=== PATIENT | female | born 1980 | race Two or more races ===

== ENCOUNTER 2016-10-21 06:10 | Inpatient (IN) | payer BC, OTHER ==
[2016-10-21] MEDS: ELECTROLYTE-148 SOLN 500 ML IV SCH (06:30)
[2016-10-21 06:43] VITALS: BMI 32.5
[2016-10-21] MEDS ORDERED: CITRIC ACID/SODIUM CITRATE 30 ML UNIT-DOSE CUP PO ONE (06:45)
[2016-10-21] MEDS ORDERED: ELECTROLYTE-148 SOLN 1,000 ML IV SCH ×2 (07:15→08:15)
[2016-10-21] MEDS ORDERED: oxyCODONE HCL 5 MG TABLET PO PRN (08:14)
[2016-10-21] MEDS ORDERED: METHYLERGONOVINE MALEATE 0.2 MG/1 ML AMP IM PRN (08:14)
[2016-10-21 08:59] LABS: ARTERIAL BLOOD GAS BASE EXCESS -1.2 meq/l (-2-2); ARTERIAL BLOOD GAS HCO3 23.2 meq/L (22-26); ARTERIAL BLOOD GAS pH 7.38 (7.35-7.45)
[2016-10-21 09:00] LABS: LPM/O2% 21%; PT. ON O2? NO; TYPE OF O2 ROOM AIR
[2016-10-21] MEDS ORDERED: TUBERCULIN PPD 5 TU/0.1ML SYRINGE (IN PATIENT USE ONLY) ID ONE (09:00)
--- NOTE | 2016-10-21 09:01 | HP ---
[id number] Chief Complaint: Previous Section. previous demise History of Present Illness: 36 yo EDC 11/04/16 EGA 38 weeks with previous demise and previous cS for repeat CS +AFM no ROM no bleeding History Source: Patient - Past Medical History ...: 2 ...Para: 1 ...Term: 1 ...: 0 ...Spon : 0 ...Induced : 0 ...Multiple Gestation: 0 ...LMP: 01/20/16 ... Weeks Gestation by Dates: 39.2 ...EDC by Dates: 10/26/16 ...EDC by Sono: 11/04/16 - Past Surgical History Past Surgical History: Yes: None Hx Myomectomy: No Hx Transabdominal Cerclage: No - Smoking History Smoking history: Never smoked Have you smoked in the past 12 months: No - Alcohol/Substance Use Hx Alcohol Use: No History of Substance Use: reports: None - Social History ADL: Independent History of Recent Travel: No Home Medications - Allergies Allergies/Adverse Reactions: Allergies Allergy/AdvReac Type Severity Reaction Status Date / Time No Known Allergies Allergy Verified 10/01/15 17:35 - Home Medications Home Medications: Ambulatory Orders Vit #108/Iron/FA [ One Tablet] 1 each PO DAILY 10/01/15 Review of Systems - Review of Systems Constitutional: reports: No Symptoms Eyes: reports: No Symptoms HENT: reports: No Symptoms Neck: reports: No Symptoms Cardiovascular: reports: No Symptoms Respiratory: reports: No Symptoms Gastrointestinal: reports: No Symptoms Genitourinary: reports: No Symptoms Breasts: reports: No Symptoms Reported Musculoskeletal: reports: No Symptoms Integumentary: reports: No Symptoms Neurological: reports: No Symptoms Endocrine: reports: No Symptoms Hematology/Lymphatic: reports: No Symptoms Psychiatric: reports: No Symptoms Physical Exam - Maternity Vital Signs: Vital Signs Temperature 97.9 F 10/21/16 06:36 Pulse Rate 109 H 10/21/16 06:36 Respiratory Rate 20 10/21/16 06:36 Blood Pressure 123/69 10/21/16 06:36 O2 Sat by Pulse Oximetry (%) Constitutional: Yes: Well Nourished, No Distress Neck: Yes: WNL, Supple Cardiovascular: Yes: WNL Lungs: Clear to auscultation - Abdominal Exam/OB Number of Fetuses: Single Presentation: Vertex Contractions: No Monitor Mode: External Category: I Accelerations: Non-Uniform Decelerations: None - Vaginal Exam/OB Vaginal Bleediing: No Amniotic Membrane Status: Intact Presentation: Vertex/Position Station: -1 - Physical Exam Musculoskeletal: Yes: WNL Extremities: Yes: WNL Edema: No Hemorrhage Risk Assessment - Risk Factors Medium Risk Factors: Yes: Prior , uterine surgery,or multiple laparotomies Risk Score: 1 Risk Level: Medium Risk Problem List - Problems (1) Previous stillbirth or demise, antepartum Code(s): O09.299 - SUPRVSN OF PREG W POOR REPRODCTV OR OBSTET HISTORY, UNSP TRI (2) Previous delivery affecting Code(s): O34.219 - MATERNAL CARE FOR UNSP TYPE SCAR FROM PREVIOUS DEL Assessment/Plan IUP at 38 week previous Section Plan repeat section
[2016-10-21 09:02] LABS: ARTERIAL BLOOD GAS BASE EXCESS -9.2 meq/l (-2-2); ARTERIAL BLOOD GAS pH 7.35 (7.35-7.45)
[2016-10-21 09:03] LABS: ARTERIAL BLD GAS O2 SATURATION 68.8 % (90-98.9); PT. ON O2? NO
[2016-10-21 09:04] LABS: ARTERIAL BLD GAS O2 SATURATION 53.7 % (90-98.9); LPM/O2% 21%; TYPE OF O2 ROOM AIR
[2016-10-21 09:05] LABS: ARTERIAL BLOOD GAS HCO3 14.4 meq/L (22-26); ARTERIAL BLOOD GAS PO2 28.1 mmHg (80-100)
--- NOTE | 2016-10-21 09:05 | OP ---
Operative Note - Note: Operative Date: 10/21/16 Pre-Operative Diagnosis: Previous Section. iup at 38 weeks Operation: Repeat Section Findings: Live male infant Post-Operative Diagnosis: Same as Pre-op Surgeon: Beryl Syed Dog Food Shredder Operator: Manju Carter Anesthesia: Spinal Estimated Blood Loss (mls): 600 Operative Report Dictated: Yes
[2016-10-21] MEDS: OXYTOCIN 20 UNITS in 0.9% NS 1,000 ML IV SCH ×2 (09:20→17:21)
[2016-10-21] MEDS ORDERED: ONDANSETRON 4 MG/2 ML VIAL IVPB PRN (09:44)
--- NOTE | 2016-10-21 10:37 | OP ---
DATE OF OPERATION: 10/21/2016 PREOPERATIVE DIAGNOSES: Previous section. Intrauterine at 38 weeks. Previous demise. OPERATION: Repeat low-transverse section. POSTOPERATIVE DIAGNOSES: Previous section. Intrauterine at 38 weeks. Previous demise. Live male infant. SURGEON: Beryl Syed MD SEARCH ENGINE OPTIMIZER: Manju Carter DO ANESTHESIOLOGIST: PROCEDURE: The patient was taken to the operating room and placed in supine position, prepped and draped in the usual sterile fashion. After spinal anesthesia had been given, a timeout was performed in accordance with hospital regulation. A Pfannenstiel skin incision was made and previous scar was removed. Cautery was then used to go through layers of abdominal wall to the level of the fascia. Fascia was cut in the midline and cautery was then used to open the fascia in smiling fashion. Kochers were then used to bluntly and sharply dissect the rectus muscles off the fascia. Muscles split in the midline. Peritoneal cavity was then entered and carried up and down where bladder retractor was then placed. Care was then used to make a low-transverse uterine incision. The incision was carried upward using bandage scissors. A live male was delivered in LOP position. Nose and mouth suction performed. Shoulders were delivered without difficulty. Cord was clamped and cut. Cord blood obtained. was handed to the head banquet waiter/waitress. Cord pH blood was done. Uterus exteriorized. Placenta was manually extracted from the uterus. The uterus was cleaned with clean laparotomy pads. Uterine incision was then closed using 0 Biosyn suture, first layer in continuous and locking, second layer imbricating the first layer. Hemostasis was achieved. [id number] sutures were then used to tie off any bleeding. Uterus interiorized. Abdominal cavity cleaned with clean laparotomy pads. Peritoneum cavity was then closed using 0 Biosyn suture. Fascia was then closed using 0 Vicryl suture. The skin was then closed using 3-0 Vicryl subcuticular fashion. Wounds washed and dressed. The patient tolerated the procedure well, was taken to the recovery room in stable condition. BERYL SYED M.D. [id number]
[2016-10-21] MEDS: IBUPROFEN 800 MG/8 ML IJ IVPB PRN (22:19)
[2016-10-22] MEDS: OXYTOCIN 20 UNITS in 0.9% NS 1,000 ML IV SCH ×2 (01:24→11:30)
[2016-10-22] MEDS: IBUPROFEN 800 MG/8 ML IJ IVPB PRN (05:49)
[2016-10-22 08:12] LABS: BASOPHIL 0.3 % (0-2.0); EOSINOPHIL 1.3 % (0-4.5); MCH 30.6 pg (25.7-33.7); MCHC 34.5 g/dl (32.0-36.0); MEAN CELL VOLUME 88.7 fl (80-96); MEAN PLT VOLUME 9.2 fl (7.5-11.1); NEUTROPHILS 72.8 % (42.8-82.8); PLATELET COUNT 147 K/MM3 (134-434); RDW 15.1 % (11.6-15.6); WHITE BLOOD COUNT 9.6 K/mm3 (4.0-10.0)
[2016-10-22] MEDS ORDERED: BISACODYL 10 MG SUPP.RECT RC PRN (08:15)
--- NOTE | 2016-10-22 09:00 | PN ---
Post Progress Note - Subjective Subjective: Pt seen/evaluated, doing well. Pain controlled, tolerating clears. No flatus yet. VB minimal. Ambulating, Denies Cp/SOB/F/C/WEBER. Type of Delivery: Repeat C/S Vital Signs: Vital Signs Temperature 98.2 F 10/22/16 06:00 Pulse Rate 90 10/22/16 06:00 Respiratory Rate 18 10/22/16 06:00 Blood Pressure 107/65 10/22/16 06:00 O2 Sat by Pulse Oximetry (%) Breast Exam: Yes: Soft Uterus: Yes: Fundus below umbilicus Incision: Yes: Dressing dry and intact Abdomen/GI: Yes: Abdomen soft, Tolerating PO. No: Abdominal Distention, Tender , Passing flatus Lochia: Yes: Rubra Lochia, amount: Small Extremities: Yes: Calves non-tender. No: Edema Perineum: Yes: Intact Activity: Ambulating - Labs Labs: CBC WBC 9.6 K/mm3 (4.0-10.0) 10/22/16 07:20 RBC 3.60 M/mm3 (3.60-5.2) 10/22/16 07:20 Hgb 11.0 GM/dL (10.7-15.3) 10/22/16 07:20 Hct 31.9 % (32.4-45.2) L 10/22/16 07:20 MCV 88.7 fl (80-96) 10/22/16 07:20 MCHC 34.5 g/dl (32.0-36.0) 10/22/16 07:20 RDW 15.1 % (11.6-15.6) 10/22/16 07:20 Plt Count 147 K/MM3 (134-434) 10/22/16 07:20 MPV 9.2 fl (7.5-11.1) 10/22/16 07:20 Neutrophils % 72.8 % (42.8-82.8) 10/22/16 07:20 Lymphocytes % 14.8 % (8-40) D 10/22/16 07:20 Monocytes % 10.8 % (3.8-10.2) H 10/22/16 07:20 Eosinophils % 1.3 % (0-4.5) D 10/22/16 07:20 Basophils % 0.3 % (0-2.0) 10/22/16 07:20 Problem List - Problems (1) delivery delivered Code(s): O82 - ENCOUNTER FOR DELIVERY WITHOUT INDICATION Assessment/Plan 36 y/o POD#1 s/p repeat c section - AFVSS - Hgb 11.0 - advance diet as tolerated - ambulation - PO pain meds - routine care
[2016-10-22] MEDS ORDERED: DIPHTH,PERTUSS(ACELL),TET 0.5 ML DISP.SYRIN IM ONE (10:00)
[2016-10-22] MEDS ORDERED: INFLUENZA VACCINE 45 MCG/0.5 ML (MDV 16-17) IM ONE (10:00)
[2016-10-22] MEDS ORDERED: INFLUENZA VACCINE 60 MCG/0.5 ML (P/F DISP.SYRIN 16-17) IM ONE (10:00)
[2016-10-22] MEDS: PRENATAL VITAMINS W/ FOLIC ACID TABLET (FP) PO SCH (13:44)
--- NOTE | 2016-10-22 14:53 | PN ---
Progress Note, Physician Chief Complaint: Pt. ambulating and voiding, no WEBER, pain controlled. No anesthesia complications. - Current Medication List Current Medications: Active Medications Acetaminophen (Tylenol -) 650 mg PO Q4H PRN PRN Reason: FEVER OR PAIN Bisacodyl (Dulcolax Suppository -) 10 mg RC PRN PRN PRN Reason: CONSTIPATION Parenteral Electrolytes (Plasma-Lyte 148 -) 500 mls @ 1,000 mls/hr IV ASDIR AVTAR Last Admin: 10/21/16 06:30 Dose: 1,000 mls/hr Parenteral Electrolytes (Plasma-Lyte 148 -) 1,000 mls @ 125 mls/hr IV ASDIR AVTAR Oxytocin/Sodium Chloride (Normal Saline+20 Units Oxytocin -) 1,000 mls @ 125 mls/hr IV ASDIR AVTAR Last Admin: 10/22/16 11:30 Dose: 125 mls/hr Parenteral Electrolytes (Plasma-Lyte 148 -) 1,000 mls @ 125 mls/hr IV ASDIR AVTAR Ibuprofen (Motrin -) 600 mg PO Q4H PRN PRN Reason: PAIN Ibuprofen (Caldolor Injection -) 800 mg IVPB Q8H PRN PRN Reason: PAIN OR FEVER Last Admin: 10/22/16 05:49 Dose: 800 mg Methylergonovine Maleate (Methergine Injection -) 0.2 mg IM Q4H PRN PRN Reason: Excessive Bleeding (L&D) Oxycodone HCl (Roxicodone -) 5 mg PO Q4H PRN PRN Reason: PAIN LEVEL 1-5 Oxycodone HCl (Roxicodone -) 10 mg PO Q4H PRN PRN Reason: PAIN LEVEL 6-10 Multivit/Folic Acid/Iron ( Vitamins (Sjr) -) 1 tab PO DAILY [facility] Last Admin: 10/22/16 13:44 Dose: 1 tab Simethicone (Mylicon -) 80 mg PO Q4H PRN PRN Reason: GAS - Objective Vital Signs: Vital Signs Temperature 97.4 F L 10/22/16 10:00 Pulse Rate 88 10/22/16 10:00 Respiratory Rate 18 10/22/16 13:00 Blood Pressure 96/63 10/22/16 10:00 O2 Sat by Pulse Oximetry (%) Constitutional: Yes: Well Nourished, No Distress, Calm Musculoskeletal: Yes: WNL Neurological: Yes: WNL, Alert, Oriented ...Motor Strength: WNL Labs: CBC, BMP 10/22/16 07:20 Assessment/Plan POD#1 s/p repeat under spinal with duramorph. Doing well. D/C from anesthesia care.
[2016-10-22] MEDS: IBUPROFEN 600 MG TABLET (FP) PO PRN ×2 (15:28→20:54)
[2016-10-22] MEDS: SIMETHICONE 80 MG TAB.CHEW (FP) PO PRN ×2 (15:28→20:54)
[2016-10-22] MEDS: ELECTROLYTE-148 SOLN 500 ML IV SCH (17:44)
[2016-10-22] MEDS: oxyCODONE HCL 5 MG TABLET PO PRN (20:54)
--- NOTE | 2016-10-22 21:59 | DS ---
Physical Exam-SPEECH LANGUAGE PATHOLOGIST PRN Vital Signs: Vital Signs Temperature 97.4 F L 10/22/16 10:00 Pulse Rate 88 10/22/16 10:00 Respiratory Rate 18 10/22/16 13:00 Blood Pressure 96/63 10/22/16 10:00 O2 Sat by Pulse Oximetry (%) Constitutional: Yes: Well Nourished, No Distress Cardiovascular: Yes: WNL Respiratory: Yes: WNL, Regular, CTA Bilaterally Gastrointestinal: Yes: WNL ....Post : Yes: Uterus firm, Uterus non-tender Breast(s): Yes: WNL Integumentary: Yes: WNL Wound/Incision: Yes: Clean/Dry, Well Approximated Neurological: Yes: WNL, Alert, Oriented Labs: CBC, BMP 10/22/16 07:20 Delivery - Delivery Type of Anesthesia: Spinal Episiotomy/Laceration: None EBL (cc): 500 Delivery, Single - Stages of Labor Date of Delivery: 10/21/16 Time of Delivery: 08:33 Time Placenta Delivered: 08:35 Placenta: Yes: Manual Removal - Condition of Assistant Cross Country Coach/Provider Education Specialist Present: Yes Name: Ulysses Curry Gender: Male Weight: 7 lb 2 oz Position: Left, OT Total Hours ROM (Hrs/Mins): 1 min - 1 Minute Total Score: 8 5 Minutes Total Score: 9 - Feeding Plan Initial Plan: Exclusive throughout hospitalization Discharge Summary Reason For Visit: Current Active Problems delivery delivered (Acute) Previous delivery affecting (Acute) Previous stillbirth or demise, antepartum (Acute) Procedures: Principal: Repeat Low transverse Section Hospital Course: unremarkable Condition: Good - Instructions Diet, Activity, Other Instructions: Physical activity Resume your normal everyday activity as tolerated no heavy lifting or exercise until seen by your surgeon. You may walk unlimited giorgio of and climb stairs. You may resume driving the car when you feel safe and comfortable behind the wheel. No sexual activity as instructed. Wound care If you have a bandage, leave it on, and keep dry for 48-72 hours. After that time discard the outer bandage. If they are tapes on the skin under the out of bandage leave them in place. They will peel off in the next 7 to 10 days. Do Not Peel them off. You may shower the day after surgery. If there are tapes present on the skin, you may shower over them. Diet There are no dietary restrictions. Eat healthy, high-fiber foods. Drink 6 to 8 glasses of liquid each day. This will assist in keeping your bowels are regular. Pain management You may take Tylenol or acetaminophen or Ibuprofen (for example, Motrin, Advil etc.) from my pain prescription medication is ordered should be taken as prescribed for moderate to severe pain. Call MD for any of the following: Severe pain not relieved by medication Fever of 101 or higher Excessive bleeding or drainage on dressing Inability to urinate Disposition: HOME - Home Medications Comprehensive Discharge Medication List: Ambulatory Orders Vit #108/Iron/FA [ One Tablet] 1 each PO DAILY 10/01/15
[2016-10-23] MEDS: SIMETHICONE 80 MG TAB.CHEW (FP) PO PRN ×3 (04:58→21:54)
[2016-10-23] MEDS: oxyCODONE HCL 5 MG TABLET PO PRN ×3 (04:59→21:54)
[2016-10-23] MEDS: IBUPROFEN 600 MG TABLET (FP) PO PRN ×3 (05:03→21:55)
--- NOTE | 2016-10-23 08:16 | PN ---
Progress Note (SOAP) - Current Medications Current Medications: Active Medications Acetaminophen (Tylenol -) 650 mg PO Q4H PRN PRN Reason: FEVER OR PAIN Bisacodyl (Dulcolax Suppository -) 10 mg RC PRN PRN PRN Reason: CONSTIPATION Ibuprofen (Motrin -) 600 mg PO Q4H PRN PRN Reason: PAIN Last Admin: 10/23/16 05:03 Dose: 600 mg Ibuprofen (Caldolor Injection -) 800 mg IVPB Q8H PRN PRN Reason: PAIN OR FEVER Last Admin: 10/22/16 05:49 Dose: 800 mg Methylergonovine Maleate (Methergine Injection -) 0.2 mg IM Q4H PRN PRN Reason: Excessive Bleeding (L&D) Oxycodone HCl (Roxicodone -) 5 mg PO Q4H PRN PRN Reason: PAIN LEVEL 1-5 Last Admin: 10/23/16 04:59 Dose: 5 mg Oxycodone HCl (Roxicodone -) 10 mg PO Q4H PRN PRN Reason: PAIN LEVEL 6-10 Last Admin: 10/22/16 15:29 Dose: 10 mg Multivit/Folic Acid/Iron ( Vitamins (Sjr) -) 1 tab PO DAILY AVTAR Last Admin: 10/22/16 13:44 Dose: 1 tab Simethicone (Mylicon -) 80 mg PO Q4H PRN PRN Reason: GAS Last Admin: 10/23/16 04:58 Dose: 80 mg - Objective Vital Signs: Vital Signs Temperature 99 F 10/22/16 22:00 Pulse Rate 109 H 10/22/16 22:00 Respiratory Rate 18 10/22/16 22:00 Blood Pressure 97/55 10/22/16 22:00 O2 Sat by Pulse Oximetry (%) Constitutional: Yes: Well Nourished, No Distress ....Post : Yes: Uterus firm, Uterus non-tender Breast(s): Yes: WNL Musculoskeletal: Yes: WNL Extremities: Yes: WNL Peripheral Pulses WNL: No Labs Lab Results: CBC, BMP 10/22/16 07:20 Problem List - Problems (1) Previous stillbirth or demise, antepartum Code(s): O09.299 - SUPRVSN OF PREG W POOR REPRODCTV OR OBSTET HISTORY, UNSP TRI (2) Previous delivery affecting Code(s): O34.219 - MATERNAL CARE FOR UNSP TYPE SCAR FROM PREVIOUS DEL Assessment/Plan IUP at 38 week SP repeat CS Plan DC home in am
[2016-10-23] MEDS: PRENATAL VITAMINS W/ FOLIC ACID TABLET (FP) PO SCH (09:34)
[2016-10-23] MEDS: ACETAMINOPHEN 325 MG TABLET (FP) PO PRN (12:56)
[2016-10-24 07:27] LABS: BASOPHIL 0.7 % (0-2.0); EOSINOPHIL 3.3 % (0-4.5); MCH 30.1 pg (25.7-33.7); MCHC 33.4 g/dl (32.0-36.0); MEAN CELL VOLUME 90.1 fl (80-96); MEAN PLT VOLUME 9.1 fl (7.5-11.1); NEUTROPHILS 56.4 % (42.8-82.8); PLATELET COUNT 170 K/MM3 (134-434); RDW 15.2 % (11.6-15.6); WHITE BLOOD COUNT 6.8 K/mm3 (4.0-10.0)
[2016-10-24] MEDS: oxyCODONE HCL 5 MG TABLET PO PRN (07:56)
[2016-10-24] MEDS: ACETAMINOPHEN 325 MG TABLET (FP) PO PRN (07:57)
[2016-10-24] MEDS: IBUPROFEN 600 MG TABLET (FP) PO PRN (07:57)
[2016-10-24 08:39] VITALS: BP 114/68; PULSE 83; TEMP 98.3
[2016-10-24] MEDS: PRENATAL VITAMINS W/ FOLIC ACID TABLET (FP) PO SCH (09:12)
--- NOTE | 2016-10-27 14:24 | PATH ---
Surgical Pathology Report Patient Name: MARYANNE MEDINA Med. Rec. #: [id number] /Age/Gender: 1980 (Age: 36) / F Account: [id number] Location: [facility] OBS/OIL WELL PERFORATOR OPERATOR Taken: 10/21/2016 Received: 10/21/2016 Reported: 10/27/2016 Physicians: Beryl Syed M.D. Specimen(s) Received PLACENTA Clinical History , 39 gestational weeks; scheduled repeat c/section Final Diagnosis PLACENTA DELIVERY: FOCALLY DISRUPTED THIRD TRIMESTER PLACENTA WITH FOCAL CHRONIC DECIDUITIS, MODERATE PREVILLOUS, PERIVILLOUS, AND PRECHORIONIC FIBRIN DEPOSITION, THREE VESSEL UMBILICAL CORD, AND UNREMARKABLE PLACENTAL MEMBRANES. Electronically Signed Yan Robbins M.D. Gross Description The specimen is received fresh, labeled "placenta" and is a 516 gram, 20.0 x 17.5 x 2.0 cm placenta with attached membranes and umbilical cord. The attached membranes are morrison, translucent with focal opacities and insert marginally. The umbilical cord measures 7 cm in length and averages 1 cm in diameter. The cord inserts eccentrically, 6 cm to the nearest margin. No true knots or strictures are identified. Cut surface of the umbilical cord reveals 3 vessels. The surface is oconnell-blue with fibrin deposition and appropriate caliber vessels. The maternal surface is red-brown with focal defects. Sectioning reveals red-brown, spongy parenchyma. No focal lesions are identified. Fuel Yard Operator sections are submitted in three cassettes as follows: 1- membrane rolls and umbilical cord; 2-3- full thickness sections of placenta. 10/26/2016 [facility]10/26/2016
== END 2016-10-24 12:20 | disposition home or self-care (01) | DRG 766 ==
LOC: JLDR 06:10 → J3W 10:36
PROVIDERS: ADMIT Obstetrics & Gynecology; ATTEND Obstetrics & Gynecology
PROC: 10D00Z1 Extraction of Products of Conception, Low, Open Approach (ICD-10-PCS; principal; 2016-10-21)
DX: O34.211 Maternal care for low transverse scar from previous cesarean delivery (principal); Z3A.38 38 weeks gestation of pregnancy; Z37.0 Single live birth
CPT/HCPCS: 36415; 36600; 82803; 85025; 88307-TC; 90686; 90715; G0008

== ENCOUNTER 2018-08-28 14:00 | Inpatient (IN) | payer BC, OTHER ==
[2018-08-29] MEDS ORDERED: CITRIC ACID/SODIUM CITRATE 30 ML UNIT-DOSE CUP PO ONE (07:46)
[2018-08-29] MEDS ORDERED: ELECTROLYTE-148 SOLN 500 ML IV ONE (07:46)
[2018-08-29] MEDS ORDERED: ELECTROLYTE-148 SOLN 1,000 ML IV SCH (08:00)
--- NOTE | 2018-08-29 08:06 | HP ---
Past Medical History - Admission Chief Complaint: Here for repeat c section. History of Present Illness: 38 y/o female with h/o c section X 2 and h/o IUFD X 1 at 38 weeks here for scheduled repeat c section. uncomplicated. History Source: Patient Limitations to Obtaining History: No Limitations - Past Medical History Cardiovascular: No: HTN Reproductive: No: PID, Polycystic Ovary Syndrome ...: 3 ...Para: 1 ...Term: 2 Heme/Onc: No: Anemia Psych: No: Anxiety, Bipolar - Past Surgical History Past Surgical History: Yes: Hx Myomectomy: No Hx Transabdominal Cerclage: No - Smoking History Smoking history: Never smoked Have you smoked in the past 12 months: No - Alcohol/Substance Use Hx Alcohol Use: No History of Substance Use: reports: None - Social History ADL: Independent History of Recent Travel: No Home Medications - Allergies Allergies/Adverse Reactions: Allergies Allergy/AdvReac Type Severity Reaction Status Date / Time No Known Allergies Allergy Verified 08/29/18 09:01 - Home Medications Home Medications: Ambulatory Orders Vit 108/Iron/Folic AC [ One Tablet] 1 each PO DAILY 10/01/15 Review of Systems - Review of Systems Constitutional: reports: No Symptoms Eyes: reports: No Symptoms HENT: reports: No Symptoms Neck: reports: No Symptoms Cardiovascular: reports: No Symptoms Respiratory: reports: No Symptoms Gastrointestinal: reports: No Symptoms Genitourinary: reports: No Symptoms Breasts: reports: No Symptoms Reported Musculoskeletal: reports: No Symptoms Integumentary: reports: No Symptoms Neurological: reports: No Symptoms Endocrine: reports: No Symptoms Hematology/Lymphatic: reports: No Symptoms Psychiatric: reports: No Symptoms Physical Exam - Maternity Constitutional: Yes: Well Nourished, No Distress, Calm Eyes: Yes: Conjunctiva Clear, EOM Intact HENT: Yes: Atraumatic, Normocephalic Neck: Yes: Supple, Trachea Midline Cardiovascular: Yes: Regular Rate and Rhythm Lungs: Clear to auscultation Breast(s): Yes: WNL - Abdominal Exam/OB Number of Fetuses: Single Presentation: Vertex Contractions: No - Vaginal Exam/OB Vaginal Bleediing: No Speculum Exam: No Amniotic Membrane Status: Intact Presentation: Vertex/Position - Physical Exam Psychiatric: Yes: Alert, Oriented Hemorrhage Risk Assessment - Risk Factors Medium Risk Factors: Yes: Prior , uterine surgery,or multiple laparotomies High Risk Factors: Yes: None Risk Score: 1 Risk Level: Medium Risk Problem List - Problems (1) Previous delivery affecting Code(s): O34.219 - MATERNAL CARE FOR UNSP TYPE SCAR FROM PREVIOUS DEL Assessment/Plan 38 y/o with SIUP at 38 weeks, h/o c section X 2 and h/o IUFD for repeat c section NPO SCDs smith anesthesia/nursery aware
[2018-08-29] MEDS ORDERED: TUBERCULIN PPD 5 TU/0.1ML SYRINGE (IN PATIENT USE ONLY) ID ONE (08:15)
[2018-08-29 08:28] VITALS: BMI 32.9
[2018-08-29] MEDS ORDERED: morphine SULFATE/Preservative Free 0.5 MG/ML (1cc Syringe) ONE (09:33)
[2018-08-29] MEDS ORDERED: oxyCODONE HCL 5 MG TABLET PO PRN (10:30)
[2018-08-29] MEDS ORDERED: METHYLERGONOVINE MALEATE 0.2 MG/1 ML AMP IM PRN (10:30)
[2018-08-29] MEDS ORDERED: ePHEDrine SULFATE 50 MG/1 ML AMPULE ONE (10:52)
[2018-08-29] MEDS ORDERED: PHENYLEPHRINE HCL 10 MG/1 ML SINGLE DOSE VIAL ONE (11:07)
[2018-08-29] MEDS ORDERED: KETOROLAC TROMETHAMINE 30 MG/1 ML VIAL ONE (11:07)
[2018-08-29] MEDS ORDERED: ceFAZolin SODIUM 1 GM VIAL ONE ×2 (11:07)
--- NOTE | 2018-08-29 11:54 | SURG ---
Surgery Imaging Tech Note Imaging Tech: Beulah Banegas PA-C Date of Service: 08/29/18 Diagnosis: previous c section X 2, h/o IUFD at 38 weeks Procedure: repeat LTCS I was present for the entirety of the operative procedure. For further detail, please refer to operative report. Visit type - Case Type Case Type: Scheduled - Emergency Emergency Visit: No - New patient This patient is new to me today: Yes Date on this admission: 08/30/18
[2018-08-29] MEDS ORDERED: ONDANSETRON 4 MG/2 ML VIAL IVPUSH PRN (11:59)
[2018-08-29] MEDS ORDERED: LACTATED RINGERS SOLUTION 1,000 ML IV SCH (12:00)
[2018-08-29] MEDS: OXYTOCIN 20 UNITS in 0.9% NS 20 UNIT/1,000 ML INFUS.BAG IV SCH ×2 (12:00→21:45)
[2018-08-29] MEDS ORDERED: OXYTOCIN 20 UNITS in 0.9% NS 20 UNIT/1,000 ML INFUS.BAG IV ONE (12:01)
[2018-08-29] MEDS: IBUPROFEN 800 MG/8 ML IJ IVPB PRN (15:46)
--- NOTE | 2018-08-29 17:50 | OP ---
Operative Note - Note: Operative Date: 08/29/18 Pre-Operative Diagnosis: previous c section X 2, h/o IUFD at 38 weeks Operation: repeat LTCS Findings: normal b/l tubes/ovaries life male infant Surgeon: Manju Carter Salicylic Acid Blender: Beulah Banegas Anesthesia: Spinal Estimated Blood Loss (mls): 700 Operative Report Dictated: Yes
[2018-08-30] MEDS: IBUPROFEN 800 MG/8 ML IJ IVPB PRN (01:50)
[2018-08-30 07:41] LABS: BASO % 0.2 % (0-2.0); EOS % 0.6 % (0-4.5); HEMATOCRIT 32.8 % (32.4-45.2); HEMOGLOBIN 11.7 GM/dL (10.7-15.3); LYMPH % 11.5 % (8-40); MCH 34.7 pg (25.7-33.7); MCHC 35.7 g/dl (32.0-36.0); MEAN CELL VOLUME 97.3 fl (80-96); MEAN PLT VOLUME 9.3 fl (7.5-11.1); MONO % 8.9 % (3.8-10.2); NEUT % 78.8 % (42.8-82.8); PLATELET COUNT 150 K/MM3 (134-434); RBC 3.38 M/mm3 (3.60-5.2); RDW 14.3 % (11.6-15.6); WHITE BLOOD COUNT 10.9 K/mm3 (4.0-10.0)
[2018-08-30] MEDS: IBUPROFEN 600 MG TABLET (FP) PO PRN ×3 (08:39→21:43)
[2018-08-30] MEDS: ACETAMINOPHEN 325 MG TABLET (FP) PO PRN ×3 (08:40→21:44)
[2018-08-30] MEDS ORDERED: BISACODYL 10 MG SUPP.RECT RC PRN (10:30)
--- NOTE | 2018-08-30 11:06 | OP ---
DATE OF OPERATION: 08/29/2018 PREOPERATIVE DIAGNOSES: Single intrauterine at 38 weeks, history of intrauterine demise, history of section x2. POSTOPERATIVE DIAGNOSES: Single intrauterine at 38 weeks, history of intrauterine demise, history of section x2, with live male . PROCEDURE: Repeat low transverse section. SURGEON: Manju Carter DO ANESTHESIA: Spinal by . MASS SPECTROSCOPIST: KATIUSKA Guzmán ESTIMATED BLOOD LOSS: 700 mL. COMPLICATIONS: None. COUNTS: Sponge, needle and instrument count correct. DISPOSITION: Stable to PACU. BRIEF HISTORY AND PROCEDURE: Patient is a 38-year-old female who had been admitted to [facility] on August 29, 2018, for a scheduled repeat . Patient has a history of intrauterine demise at 38 weeks and a history of 2 prior c-sections. The consent for the procedure was signed upon admission. She was then taken back to the operating room, given spinal anesthesia and placed in the dorsal supine position. A Haro catheter was placed under sterile conditions. She was prepped and draped in the usual sterile fashion and a hard timeout was performed. A Pfannenstiel skin incision was created in the skin with a scalpel and carried to the underlying layer of rectus fascia sharply. The fascia was incised on either side of the midline sharply and carried in a superolateral direction sharply. The fascia was tented upward and dissected off the underlying layer of rectus muscle sharply and the musculature was elevated and from the midline sharply. The peritoneum was entered bluntly and a bladder blade was inserted to allow for bladder protection. A transverse incision was created in the lower uterine segment and this incision was carried in the superolateral direction bluntly. The was then delivered from the direct occiput anterior position without difficulty. Bilateral shoulders were removed. was delivered with ease. The cord was clamped twice and cut between. Taken over to the warmer to be assessed by the neonatology staff where scores of 9 and 9 were assigned. The placenta was delivered manually. It was noted to have a 3-vessel cord. The uterus was exteriorized, inspected and cleared of all amniotic membrane and placental tissue with a dry lap sponge. The hysterotomy was reapproximated using double-layer closure using 1 Vicryl in a running locked fashion, the 2nd layer using 0 Biosyn in a running fashion. Excellent hemostasis was achieved. Bilateral tubes and ovaries were noted to be normal. The posterior cul-de-sac was suctioned. The uterus was placed back into the abdomen. Bilateral gutters were inspected and cleared of all blood clot and debris with moist lap sponges. Hysterotomy again was noted to be hemostatic. The peritoneum was reapproximated using 2-0 chromic in a running fashion. The musculature was reapproximated using single interrupted suture using 2-0 chromic. The fascia was reapproximated using 1 Vicryl in a running fashion. The subcutaneous tissue was approximated in 2 running layers using 0 Vicryl suture and the skin was reapproximated in subcuticular fashion using 4-0 Biosyn. The patient tolerated the procedure well. Recovering in PACU after the procedure in stable condition. MANJU CARTER DO /[id number]
--- NOTE | 2018-08-30 12:05 | PN ---
Post Progress Note - Subjective Subjective: Pt seen/evaluated, doing well. No complaints. Pain controlled. Tolerating clear diet. Ambulating to chair. VB minimal. Type of Delivery: Repeat C/S Vital Signs: Vital Signs Temperature 98.2 F 08/30/18 06:00 Pulse Rate 90 08/30/18 06:00 Respiratory Rate 18 08/30/18 06:00 Blood Pressure 96/58 L 08/30/18 06:00 O2 Sat by Pulse Oximetry (%) 99 08/29/18 21:00 Uterus: Yes: Fundus Firm Incision: Yes: Dressing dry and intact Abdomen/GI: Yes: Abdomen soft, Tolerating PO Lochia: Yes: Rubra Lochia, amount: Small Extremities: Yes: Calves non-tender, Edema (trace b/l edema in LEs) Perineum: Yes: Intact Activity: Ambulating - Labs Labs: CBC WBC 10.9 K/mm3 (4.0-10.0) H 08/30/18 06:10 RBC 3.38 M/mm3 (3.60-5.2) L 08/30/18 06:10 Hgb 11.7 GM/dL (10.7-15.3) 08/30/18 06:10 Hct 32.8 % (32.4-45.2) 08/30/18 06:10 MCV 97.3 fl (80-96) H 08/30/18 06:10 MCH 34.7 pg (25.7-33.7) H 08/30/18 06:10 MCHC 35.7 g/dl (32.0-36.0) 08/30/18 06:10 RDW 14.3 % (11.6-15.6) 08/30/18 06:10 Plt Count 150 K/MM3 (134-434) D 08/30/18 06:10 MPV 9.3 fl (7.5-11.1) 08/30/18 06:10 Absolute Neuts (auto) 8.6 K/mm3 (1.5-8.0) H 08/30/18 06:10 Neutrophils % 78.8 % (42.8-82.8) 08/30/18 06:10 Lymphocytes % 11.5 % (8-40) D 08/30/18 06:10 Monocytes % 8.9 % (3.8-10.2) 08/30/18 06:10 Eosinophils % 0.6 % (0-4.5) 08/30/18 06:10 Basophils % 0.2 % (0-2.0) 08/30/18 06:10 Nucleated RBC % 0 % (0-0) 08/30/18 06:10 Problem List - Problems (1) Previous delivery affecting Code(s): O34.219 - MATERNAL CARE FOR UNSP TYPE SCAR FROM PREVIOUS DEL (2) delivery delivered Code(s): O82 - ENCOUNTER FOR DELIVERY WITHOUT INDICATION Assessment/Plan POD#1 s/p repeat c section doing well encourage ambulation PO pain meds routine care
[2018-08-30] MEDS ORDERED: DIPHTH,PERTUSS(ACELL),TET 0.5 ML DISP.SYRIN IM ONE (14:01)
[2018-08-31] MEDS: ACETAMINOPHEN 325 MG TABLET (FP) PO PRN ×4 (02:56→22:07)
[2018-08-31] MEDS: IBUPROFEN 600 MG TABLET (FP) PO PRN ×4 (02:58→19:59)
[2018-08-31] MEDS: SIMETHICONE 80 MG TAB.CHEW (FP) PO PRN ×4 (02:58→20:01)
--- NOTE | 2018-08-31 06:42 | PN ---
Post Progress Note - Subjective Subjective: Pt seen/evaluated. upon my arrival to room. Tolerating diet, ambulating, voiding, passing flatus. Some pain when walking otherwise feeling well. Type of Delivery: Repeat C/S Vital Signs: Vital Signs Temperature 97.9 F 08/30/18 22:00 Pulse Rate 81 08/30/18 22:00 Respiratory Rate 20 08/30/18 22:00 Blood Pressure 103/62 08/30/18 22:00 O2 Sat by Pulse Oximetry (%) 99 08/29/18 21:00 Breast Exam: Yes: Soft Uterus: Yes: Fundus Firm Incision: Yes: Dressing dry and intact Abdomen/GI: Yes: Abdomen soft Lochia: Yes: Rubra Lochia, amount: Small Perineum: Yes: Intact Activity: Ambulating - Labs Labs: CBC WBC 10.9 K/mm3 (4.0-10.0) H 08/30/18 06:10 RBC 3.38 M/mm3 (3.60-5.2) L 08/30/18 06:10 Hgb 11.7 GM/dL (10.7-15.3) 08/30/18 06:10 Hct 32.8 % (32.4-45.2) 08/30/18 06:10 MCV 97.3 fl (80-96) H 08/30/18 06:10 MCH 34.7 pg (25.7-33.7) H 08/30/18 06:10 MCHC 35.7 g/dl (32.0-36.0) 08/30/18 06:10 RDW 14.3 % (11.6-15.6) 08/30/18 06:10 Plt Count 150 K/MM3 (134-434) D 08/30/18 06:10 MPV 9.3 fl (7.5-11.1) 08/30/18 06:10 Absolute Neuts (auto) 8.6 K/mm3 (1.5-8.0) H 08/30/18 06:10 Neutrophils % 78.8 % (42.8-82.8) 08/30/18 06:10 Lymphocytes % 11.5 % (8-40) D 08/30/18 06:10 Monocytes % 8.9 % (3.8-10.2) 08/30/18 06:10 Eosinophils % 0.6 % (0-4.5) 08/30/18 06:10 Basophils % 0.2 % (0-2.0) 08/30/18 06:10 Nucleated RBC % 0 % (0-0) 08/30/18 06:10 Problem List - Problems (1) Previous delivery affecting Code(s): O34.219 - MATERNAL CARE FOR UNSP TYPE SCAR FROM PREVIOUS DEL (2) delivery delivered Code(s): O82 - ENCOUNTER FOR DELIVERY WITHOUT INDICATION Assessment/Plan POD#2 s/p repeat c section doing well encourage ambulation PO pain meds routine care desires circumcision for baby
[2018-09-01] MEDS: oxyCODONE HCL 5 MG TABLET PO PRN ×2 (00:48→06:26)
[2018-09-01] MEDS: SIMETHICONE 80 MG TAB.CHEW (FP) PO PRN ×2 (00:49→06:26)
[2018-09-01] MEDS: IBUPROFEN 600 MG TABLET (FP) PO PRN ×3 (00:49→11:50)
--- NOTE | 2018-09-01 05:05 | DS ---
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 Vital Signs: Vital Signs Temperature 98.8 F 08/31/18 21:37 Pulse Rate 77 08/31/18 21:37 Respiratory Rate 18 08/31/18 21:37 Blood Pressure 104/70 08/31/18 21:37 O2 Sat by Pulse Oximetry (%) 99 08/29/18 21:00 Constitutional: Yes: Well Nourished, No Distress, Calm Eyes: Yes: Conjunctiva Clear, EOM Intact HENT: Yes: Atraumatic, Normocephalic Neck: Yes: Supple, Trachea Midline Cardiovascular: Yes: Regular Rate and Rhythm Respiratory: Yes: Regular, CTA Bilaterally Gastrointestinal: Yes: Normal Bowel Sounds, Soft ...Rectal Exam: Yes: WNL Renal/: Yes: WNL Pelvis: Yes: WNL Vaginal Exam: Yes: Normal Cervix: Yes: Normal Uterus: Yes: Normal ....Post : Yes: Uterus firm, Uterus non-tender Breast(s): Yes: WNL Musculoskeletal: Yes: WNL Extremities: Yes: WNL Wound/Incision: Yes: Clean/Dry, Well Approximated Neurological: Yes: Alert, Oriented Psychiatric: Yes: Alert, Oriented Labs: CBC, BMP 08/30/18 06:10 Delivery - Delivery Section: Repeat, Low Flap Transverse Type of Anesthesia: Spinal Episiotomy/Laceration: None EBL (cc): 800 Delivery, Single - Stages of Labor Date of Delivery: 08/29/18 Time of Delivery: 10:44 Time Placenta Delivered: 10:45 - Condition of Infant Personalized 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 Pt underwent uncomplicated procedure and recovery and was discharged home on post op day 3. Condition: Good - Instructions Diet, Activity, Other Instructions: Physical activity Resume your normal everyday activity as tolerated no heavy lifting or strenuous exercise until seen by your surgeon. You may walk unlimited amounts and climb stairs. You may resume driving the car when you feel safe and comfortable behind the wheel. No sexual activity as instructed. Wound care If there are tapes on the skin leave them in place. They will peel off in the next 7 to 10 days. Do Not Peel them off. You may shower the day after surgery. If there are tapes present on the skin, you may shower over them. Diet There are no dietary restrictions. Eat healthy, high-fiber foods. Drink 6 to 8 glasses of liquid each day. This will assist in keeping your bowels regular. Pain management You may take Tylenol or or Ibuprofen (for example, Motrin, Advil etc.) as needed. If you need anything stronger please call your doctor. Call MD for any of the following: Severe pain not relieved by medication Fever of 101 or higher Excessive bleeding or drainage on dressing Inability to urinate Referrals: Manju Carter DO [Staff Physician] - 1 Week Disposition: HOME - Home Medications Comprehensive Discharge Medication List: Ambulatory Orders Vit 108/Iron/Folic AC [ One Tablet] 1 each PO DAILY 10/01/15 Ibuprofen [Motrin -] 600 mg PO QID PRN #28 tablet 09/01/18
[2018-09-01 08:12] LABS: BASO % 0.5 % (0-2.0); EOS % 3.1 % (0-4.5); HEMATOCRIT 35.3 % (32.4-45.2); HEMOGLOBIN 12.5 GM/dL (10.7-15.3); LYMPH % 32.9 % (8-40); MCH 35.5 pg (25.7-33.7); MCHC 35.5 g/dl (32.0-36.0); MEAN CELL VOLUME 99.9 fl (80-96); MEAN PLT VOLUME 9.3 fl (7.5-11.1); MONO % 7.7 % (3.8-10.2); NEUT % 55.8 % (42.8-82.8); PLATELET COUNT 186 K/MM3 (134-434); RBC 3.53 M/mm3 (3.60-5.2); RDW 14.2 % (11.6-15.6); WHITE BLOOD COUNT 7.5 K/mm3 (4.0-10.0)
[2018-09-01 08:59] VITALS: BP 108/61; PULSE 78; TEMP 97.8
[2018-09-01] MEDS: ACETAMINOPHEN 325 MG TABLET (FP) PO PRN (11:49)
[2018-09-01 12:04] LABS: ANISOCYTOSIS 0; MACROCYTOSIS 0; PLATELET ESTIMATE NORMAL
[2018-09-01 12:56] LABS: TEAR DROP CELLS 1+
--- NOTE | 2018-09-08 15:10 | PATH ---
Surgical Pathology Report Patient Name: MARYANNE MEDINA Med. Rec. 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 Specimen(s) Received PLACENTA Clinical History term 2, VTOP1, 2016- demise full-term, repeat 2016 Final Diagnosis PLACENTA, SECTION: 601 G THIRD TRIMESTER PLACENTA WITH TRIVASCULAR UMBILICAL CORD AND UNREMARKABLE PLACENTAL MEMBRANES. Electronically Signed Evelia Taylor M.D. Gross Description The specimen is received fresh labeled placenta and is a 601 gram, 16.0 x 12.0 x 3.8 cm. placenta with attached membranes and umbilical cord. The attached membranes are morrison, translucent with focal opacities and insert marginally. The umbilical cord measures 41 cm. in length and averages 1.1 cm. in diameter. The cord inserts eccentrically, 2.5 cm. to the nearest margin. There is a true knot present in the umbilical cord. Cut surface of the umbilical cord reveals 3 vessels. The surface is oconnell-blue with minimal fibrin deposition and appropriate caliber vessels. The maternal surface is red-brown with focal defects. No lesions are identified. Eye Specialist sections are submitted in three cassettes as follows: 1- membrane rolls and umbilical cord; 2-3- full thickness sections of placenta. 09/07/[address] [facility]09/07/2018
== END 2018-09-01 14:15 | disposition home or self-care (01) | DRG 788 ==
LOC: JLDR 08-29 07:05 → J3W 08-29 13:11
PROVIDERS: ADMIT Obstetrics & Gynecology; ATTEND Obstetrics & Gynecology
PROC: 10D00Z1 Extraction of Products of Conception, Low, Open Approach (ICD-10-PCS; principal; 2018-08-29)
DX: O34.211 Maternal care for low transverse scar from previous cesarean delivery (principal); Z3A.38 38 weeks gestation of pregnancy; Z37.0 Single live birth
CPT/HCPCS: 36415; 85025; 88307-TC; 90715

== ENCOUNTER 2021-10-19 08:00 | Inpatient (IN) | payer BC, OTHER ==
[2021-10-19 09:31] VITALS: BMI 32.5
[2021-10-19] MEDS ORDERED: ELECTROLYTE-148 SOLN 1,000 ML IV SCH (11:30)
[2021-10-19] MEDS ORDERED: ACETAMINOPHEN 325 MG TABLET (FP) PO PRN (11:31)
[2021-10-19] MEDS ORDERED: BENZOCAINE 20% 57 GM BOTTLE TP PRN (11:31)
[2021-10-19] MEDS ORDERED: BENZOCAINE 28 GM HEMORRHOIDAL OINTMENT TP PRN (11:31)
[2021-10-19] MEDS ORDERED: WITCH HAZEL 50% (TUCKS) 40 PAD/JAR PAD TP PRN (11:31)
[2021-10-19] MEDS ORDERED: IBUPROFEN 800 MG/8 ML IJ IVPB PRN (11:31)
[2021-10-19] MEDS ORDERED: METHYLERGONOVINE MALEATE 0.2 MG/1 ML AMP IM PRN (11:31)
[2021-10-19] MEDS ORDERED: OXYTOCIN 20 UNITS in 0.9% NS 20 UNIT/1,000 ML INFUS.BAG IV SCH (11:45)
[2021-10-19] MEDS ORDERED: OXYTOCIN 20 UNITS in 0.9% NS 20 UNIT/1,000 ML INFUS.BAG IV ONE (13:59)
[2021-10-19 14:13] LABS: CORD HCO3 23.9 mmHg (20-29); CORD PCO2 58.3 mmHg (30-78); CORD pH 7.231 (7.14-7.44)
[2021-10-19 14:16] LABS: CORD BASE EXCESS -4.1 mmol/L (0-2); CORD HCO3 22.5 mmHg (20-29); CORD PCO2 46.9 mmHg (30-78); CORD pH 7.299 (7.14-7.44)
[2021-10-20 07:43] LABS: BASO % 0.4 % (0-2.0); EOS % 0.4 % (0-4.5); HEMATOCRIT 32.6 % (32.4-45.2); HEMOGLOBIN 11.3 GM/dL (10.7-15.3); LYMPH % 14.5 % (8-40); MCHC 34.6 g/dl (32.0-36.0); MEAN CELL VOLUME 95.4 fl (80-96); MEAN PLT VOLUME 9.6 fl (7.5-11.1); MONO % 7.2 % (3.8-10.2); NEUT % 77.5 % (42.8-82.8); PLATELET COUNT 126 10^3/uL (134-434); RBC 3.42 M/mm3 (3.60-5.2); RDW 14.8 % (11.6-15.6); WHITE BLOOD COUNT 7.7 K/mm3 (4.0-10.0)
[2021-10-20] MEDS ORDERED: FLU VACC QS2021-22(6MOS UP)/PF 60 MCG/0.5 ML SYRINGE IM ONE (10:00)
[2021-10-20] MEDS ORDERED: oxyCODONE HCL 5 MG TABLET PO PRN ×2 (10:00→23:31)
[2021-10-20] MEDS: PRENATAL VITAMINS W/ FOLIC ACID TABLET (FP) PO SCH (10:55)
[2021-10-20] MEDS: FERROUS SO4 325 MG TABLET (FP) PO SCH ×2 (10:55→17:15)
[2021-10-20] MEDS ORDERED: BISACODYL 10 MG SUPP.RECT RC PRN (11:31)
[2021-10-20] MEDS: IBUPROFEN 600 MG TABLET (FP) PO PRN ×2 (16:24→21:49)
[2021-10-20] MEDS: SIMETHICONE 80 MG TAB.CHEW (FP) PO PRN ×2 (17:21→21:49)
[2021-10-20] MEDS: SENNOSIDES/DOCUSATE COMBO (SENNA PLUS) TABLET (UD) PO PRN (21:49)
[2021-10-21] MEDS: SIMETHICONE 80 MG TAB.CHEW (FP) PO PRN ×2 (05:49→19:43)
[2021-10-21] MEDS: IBUPROFEN 600 MG TABLET (FP) PO PRN ×4 (05:49→22:21)
[2021-10-21] MEDS: FERROUS SO4 325 MG TABLET (FP) PO SCH ×2 (08:02→16:30)
[2021-10-21] MEDS: PRENATAL VITAMINS W/ FOLIC ACID TABLET (FP) PO SCH (09:16)
[2021-10-21] MEDS: SENNOSIDES/DOCUSATE COMBO (SENNA PLUS) TABLET (UD) PO PRN ×2 (09:20→19:43)
[2021-10-21 21:35] VITALS: TEMP 98.4
[2021-10-22] MEDS: IBUPROFEN 600 MG TABLET (FP) PO PRN (06:38)
[2021-10-22] MEDS: SIMETHICONE 80 MG TAB.CHEW (FP) PO PRN (06:39)
[2021-10-22 08:31] LABS: BASO % 0.6 % (0-2.0); EOS % 2.5 % (0-4.5); HEMATOCRIT 33.7 % (32.4-45.2); HEMOGLOBIN 11.5 GM/dL (10.7-15.3); LYMPH % 16.5 % (8-40); MCH 32.8 pg (25.7-33.7); MCHC 34.1 g/dl (32.0-36.0); MEAN CELL VOLUME 96.3 fl (80-96); MEAN PLT VOLUME 9.2 fl (7.5-11.1); MONO % 8.4 % (3.8-10.2); PLATELET COUNT 195 10^3/uL (134-434); RDW 14.8 % (11.6-15.6); WHITE BLOOD COUNT 7.6 K/mm3 (4.0-10.0)
[2021-10-22] MEDS: PRENATAL VITAMINS W/ FOLIC ACID TABLET (FP) PO SCH (09:59)
[2021-10-22] MEDS: FERROUS SO4 325 MG TABLET (FP) PO SCH (09:59)
[2021-10-22 10:38] VITALS: BP 122/70; PULSE 80
== END 2021-10-22 12:55 | disposition home or self-care (01) | DRG 785 ==
LOC: JLDR 08:00 → J3W 14:00
PROVIDERS: ADMIT Obstetrics & Gynecology; ATTEND Obstetrics & Gynecology
PROC: 10D00Z1 Extraction of Products of Conception, Low, Open Approach (ICD-10-PCS; principal; 2021-10-19)
PROC: 0UT70ZZ Resection of Bilateral Fallopian Tubes, Open Approach (ICD-10-PCS; 2021-10-19)
DX: O34.219 Maternal care for unspecified type scar from previous cesarean delivery (principal); Z3A.38 38 weeks gestation of pregnancy; Z37.0 Single live birth; O99.214 Obesity complicating childbirth; E66.9 Obesity, unspecified; Z30.2 Encounter for sterilization
CPT/HCPCS: 36415; 36600; 82803; 85025; 88302-TC; 88307-TC; 90686; G0008

== ENCOUNTER 2021-10-27 11:47 | Inpatient (IN) | payer BC, OTHER ==
[2021-10-27 12:57] LABS: VENOUS BASE EXCESS -3.1 mmol/L (-2-2); VENOUS O2 SATURATION 24.6 % (70-80); VENOUS PCO2 40.7 mmHg (38-52); VENOUS PH 7.354 (7.310-7.410)
[2021-10-27 12:59] LABS: HEMATOCRIT 34.5 % (32.4-45.2); HEMOGLOBIN 11.8 GM/dL (10.7-15.3); MCH 32.6 pg (25.7-33.7); MCHC 34.1 g/dl (32.0-36.0); MEAN CELL VOLUME 95.5 fl (80-96); MEAN PLT VOLUME 7.6 fl (7.5-11.1); PLATELET COUNT 233 10^3/uL (134-434); RBC 3.62 M/mm3 (3.60-5.2); RDW 14.5 % (11.6-15.6); WHITE BLOOD COUNT 15.2 K/mm3 (4.0-10.0)
[2021-10-27 13:07] LABS: INR 1.21 (0.83-1.09)
[2021-10-27 13:09] LABS: ACTIVATED PTT 29.8 SECONDS (25.2-36.5)
[2021-10-27] MEDS ORDERED: ACETAMINOPHEN 1000 MG/100 ML BAG IVPB ONE (13:10)
[2021-10-27] MEDS ORDERED: SODIUM CHLORIDE 1,000 ML IV SCH (13:15)
[2021-10-27] MEDS ORDERED: SODIUM CHLORIDE 0.9% 500 ML INFUS.BAG IV ONE (13:15)
[2021-10-27] MEDS ORDERED: ACETAMINOPHEN INJECTION 100 ML IVPB ONE (13:21)
[2021-10-27 13:24] LABS: CHLORIDE 106 mmol/L (98-107); SODIUM 139 mmol/L (136-145)
[2021-10-27 13:28] LABS: ALBUMIN 2.5 g/dl (3.4-5.0); ANION GAP 8 MMOL/L (8-16); BLOOD UREA NITROGEN 11.9 mg/dL (7-18); CO2 25 mmol/L (21-32); GLUCOSE,RANDOM 88 mg/dL (74-106)
[2021-10-27 13:31] LABS: CREATININE 0.8 mg/dL (0.55-1.3); SGOT/AST 26 U/L (15-37); SGPT/ALT 23 U/L (13-61)
[2021-10-27 13:32] LABS: TOT PROT 6.3 g/dl (6.4-8.2)
[2021-10-27 13:33] LABS: BILIRUBIN,TOTAL 0.8 mg/dL (0.2-1)
[2021-10-27 13:34] LABS: ALK PHOS 134 U/L (45-117)
[2021-10-27 13:35] LABS: ANISOCYTOSIS 0; HELMET CELLS 0; HOWELL-JOLLY BODIES 0; MACROCYTOSIS 0; OVALOCYTE 0; ROULEAU 0; SICKELED CELLS 0; TARGET CELLS 0; TEAR DROP CELLS 0; TOXIC GRANULATION 0
[2021-10-27 13:36] LABS: N-TERMINAL BNP 1046.1 pg/ml (5-125)
[2021-10-27 13:38] LABS: LACTIC ACID 2.5 mmol/L (0.4-2.0)
[2021-10-27] MEDS ORDERED: PIPERACILLIN/TAZOB 3.375 GM 3.375 GM in DEXTROSE 5%-WATER - 50 ML IVPB ONE (15:31)
[2021-10-27] MEDS ORDERED: PIPERACILLIN/TAZOB 3.375 GM 3.375 GM/50 ML BAG IVPB ONE (15:37)
[2021-10-27 15:59] LABS: URINE APPEARANCE CLEAR; URINE BILIRUBIN NEGATIVE (NEGATIVE); URINE COLOR DK YELLOW; URINE GLUCOSE (UA) NEGATIVE (NEGATIVE)
[2021-10-27 16:00] LABS: EPI CELLS 46 /uL (0-25.1); HYALINE CASTS 2 /uL (0-3.1); URINE BACTERIA 425 /uL (0-1359); URINE KETONE NEGATIVE (NEGATIVE); URINE LEUK ESTERASE NEGATIVE (NEGATIVE); URINE NITRITE NEGATIVE (NEGATIVE); URINE PROTEIN 2+ (NEGATIVE); URINE RBC 17 /uL (0-23.9); URINE WBC 86 /uL (0-25.8)
[2021-10-27] MEDS: SODIUM CHLORIDE 1,000 ML IV SCH ×2 (16:07→22:15)
[2021-10-27] MEDS ORDERED: ALBUTEROL SO4 0.083% IH SOL 2.5 MG/3 ML VIAL.NEB. NEB PRN (19:10)
[2021-10-27] MEDS ORDERED: ACETAMINOPHEN 325 MG TABLET (FP) ONE (20:00)
[2021-10-27] MEDS: ACETAMINOPHEN 325 MG TABLET (FP) PO PRN (20:03)
[2021-10-27 23:17] VITALS: BMI 29.7
[2021-10-28] MEDS: BENZOCAINE/MENTHOL 1 EACH LOZENGE MM PRN ×4 (02:10→23:15)
[2021-10-28] MEDS ORDERED: ACETAMINOPHEN 1000 MG/100 ML BAG IVPB ONE (05:41)
[2021-10-28] MEDS ORDERED: guaiFENesin 200 MG/10 ML 10 ML UNIT-DOSE CUPS PO ONE (05:43)
[2021-10-28] MEDS: SODIUM CHLORIDE 1,000 ML IV SCH ×3 (09:06→21:14)
[2021-10-28] MEDS ORDERED: VANCOMYCIN 1 GM in D5W (PRE-DOCKED) 1,000 MG/250 ML IVPB ONE (12:13)
[2021-10-28] MEDS ORDERED: VANCOMYCIN 1,000 MG in DEXTROSE 5%-WATER - 250 ML IVPB SCH (12:45)
[2021-10-28] MEDS ORDERED: PIPERACILLIN/TAZOBACTAM 4.5 GM VIAL IVPB ONE ×2 (13:37→17:27)
[2021-10-28] MEDS ORDERED: DEXTROSE 5%-WATER 100 ML IVPB ONE ×2 (13:38→17:27)
[2021-10-28] MEDS: PIPERACILLIN/TAZOB 4.5 GM 4.5 GM in DEXTROSE 5%-WATER 100 ML IVPB SCH ×2 (13:40→18:27)
[2021-10-28] MEDS ORDERED: PIPERACILLIN/TAZOB 4.5 GM 4.5 GM in DEXTROSE 5%-WATER 100 ML IVPB SCH (15:00)
[2021-10-28] MEDS ORDERED: IBUPROFEN 600 MG TABLET (FP) PO SCH (18:00)
[2021-10-28] MEDS: VANCOMYCIN/WATER FOR INJ (PEG) 1,000 MG/200 ML BAG IVPB SCH (18:18)
[2021-10-28] MEDS: DOCUSATE SODIUM 100 MG CAPSULE (FP) PO SCH (21:13)
[2021-10-28] MEDS ORDERED: BREAST PUMP MC SCH (22:00)
[2021-10-29] MEDS ORDERED: PIPERACILLIN/TAZOBACTAM 4.5 GM VIAL IVPB ONE ×2 (00:15→09:02)
[2021-10-29] MEDS ORDERED: DEXTROSE 5%-WATER 100 ML IVPB ONE ×3 (00:15→16:35)
[2021-10-29] MEDS: PIPERACILLIN/TAZOB 4.5 GM 4.5 GM in DEXTROSE 5%-WATER 100 ML IVPB SCH ×2 (01:08→10:08)
[2021-10-29] MEDS: VANCOMYCIN/WATER FOR INJ (PEG) 1,000 MG/200 ML BAG IVPB SCH ×2 (02:02→13:08)
[2021-10-29 07:45] LABS: BASO % 0.3 % (0-2.0); EOS % 1.7 % (0-4.5); HEMOGLOBIN 9.5 GM/dL (10.7-15.3); LYMPH % 13.5 % (8-40); MCH 32.2 pg (25.7-33.7); MCHC 33.9 g/dl (32.0-36.0); MEAN CELL VOLUME 95.1 fl (80-96); MEAN PLT VOLUME 8.5 fl (7.5-11.1); MONO % 3.4 % (3.8-10.2); NEUT % 81.1 % (42.8-82.8); PLATELET COUNT 265 10^3/uL (134-434); RBC 2.95 M/mm3 (3.60-5.2); RDW 14.3 % (11.6-15.6); WHITE BLOOD COUNT 14.5 K/mm3 (4.0-10.0)
[2021-10-29 07:47] LABS: CALCIUM 7.8 mg/dL (8.5-10.1)
[2021-10-29 07:48] LABS: BLOOD UREA NITROGEN 10.9 mg/dL (7-18)
[2021-10-29 07:51] LABS: CREATININE 0.7 mg/dL (0.55-1.3)
[2021-10-29] MEDS: ENOXAPARIN NA (PORCINE) 40 MG/0.4 ML DISP.SYRIN SQ SCH (10:08)
[2021-10-29] MEDS: IBUPROFEN 600 MG TABLET (FP) PO PRN (10:09)
[2021-10-29] MEDS: DOCUSATE SODIUM 100 MG CAPSULE (FP) PO SCH ×2 (10:09→21:13)
[2021-10-29] MEDS: SODIUM CHLORIDE 1,000 ML IV SCH ×2 (13:12→16:41)
[2021-10-29] MEDS: CEFTRIAXONE 2 GM in DEXTROSE 5%-WATER 100 ML IVPB SCH (16:44)
[2021-10-29] MEDS: BENZOCAINE/MENTHOL 1 EACH LOZENGE MM PRN (16:44)
[2021-10-30] MEDS: SODIUM CHLORIDE 1,000 ML IV SCH ×4 (00:10→23:31)
[2021-10-30] MEDS: ACETAMINOPHEN 325 MG TABLET (FP) PO PRN (00:10)
[2021-10-30] MEDS: BENZOCAINE/MENTHOL 1 EACH LOZENGE MM PRN ×2 (00:11→10:32)
[2021-10-30 08:20] LABS: HEMOGLOBIN 10.3 GM/dL (10.7-15.3); MCH 32.3 pg (25.7-33.7); MCHC 34.3 g/dl (32.0-36.0); MEAN CELL VOLUME 94.2 fl (80-96); MEAN PLT VOLUME 8.5 fl (7.5-11.1); PLATELET COUNT 296 10^3/uL (134-434); RBC 3.18 M/mm3 (3.60-5.2); RDW 14.3 % (11.6-15.6); WHITE BLOOD COUNT 7.9 K/mm3 (4.0-10.0)
[2021-10-30 08:41] LABS: BLOOD UREA NITROGEN 9.5 mg/dL (7-18); CALCIUM 8.1 mg/dL (8.5-10.1); MAGNESIUM 2.1 mg/dL (1.8-2.4)
[2021-10-30 08:45] LABS: CREATININE 0.6 mg/dL (0.55-1.3); PHOSPHOROUS 3.6 mg/dL (2.5-4.9)
[2021-10-30] MEDS ORDERED: DEXTROSE 5%-WATER 100 ML IVPB ONE (09:10)
[2021-10-30 09:24] LABS: ANISOCYTOSIS 0; HELMET CELLS 0; HOWELL-JOLLY BODIES 0; MACROCYTOSIS 0; OVALOCYTE 0; ROULEAU 0; SICKELED CELLS 0; TARGET CELLS 0; TEAR DROP CELLS 0; TOXIC GRANULATION 0
[2021-10-30] MEDS: IBUPROFEN 600 MG TABLET (FP) PO PRN ×2 (10:23→21:10)
[2021-10-30] MEDS: DOCUSATE SODIUM 100 MG CAPSULE (FP) PO SCH ×2 (10:23→21:10)
[2021-10-30] MEDS: CEFTRIAXONE 2 GM in DEXTROSE 5%-WATER 100 ML IVPB SCH (10:24)
[2021-10-30] MEDS: ENOXAPARIN NA (PORCINE) 40 MG/0.4 ML DISP.SYRIN SQ SCH (11:00)
[2021-10-30] MEDS: guaiFENesin 200 MG/10 ML 10 ML UNIT-DOSE CUPS PO PRN ×3 (13:48→21:11)
[2021-10-31] MEDS ORDERED: CEFUROXIME AXETIL 500 MG TABLET PO SCH (10:00)
[2021-10-31] MEDS ORDERED: CEFTRIAXONE 2 GM in DEXTROSE 5%-WATER 2 GM/100 ML BAG IVPB SCH (10:00)
[2021-10-31 10:25] LABS: HEMATOCRIT 33.5 % (32.4-45.2); HEMOGLOBIN 11.5 GM/dL (10.7-15.3); MCH 32.5 pg (25.7-33.7); MCHC 34.3 g/dl (32.0-36.0); MEAN CELL VOLUME 94.6 fl (80-96); MEAN PLT VOLUME 8.6 fl (7.5-11.1); PLATELET COUNT 341 10^3/uL (134-434); RBC 3.54 M/mm3 (3.60-5.2); RDW 14.3 % (11.6-15.6); WHITE BLOOD COUNT 7.9 K/mm3 (4.0-10.0)
[2021-10-31 10:31] LABS: CALCIUM 8.5 mg/dL (8.5-10.1)
[2021-10-31 10:32] LABS: BLOOD UREA NITROGEN 9.8 mg/dL (7-18)
[2021-10-31 10:34] LABS: CREATININE 0.8 mg/dL (0.55-1.3)
[2021-10-31 11:11] LABS: ANISOCYTOSIS 1+; MACROCYTOSIS 1+; PLATELET ESTIMATE INCREASED
[2021-10-31] MEDS ORDERED: DEXTROSE 5%-WATER 100 ML IVPB ONE (11:22)
[2021-10-31] MEDS: ENOXAPARIN NA (PORCINE) 40 MG/0.4 ML DISP.SYRIN SQ SCH (11:24)
[2021-10-31] MEDS: DOCUSATE SODIUM 100 MG CAPSULE (FP) PO SCH (11:25)
[2021-10-31] MEDS: guaiFENesin 200 MG/10 ML 10 ML UNIT-DOSE CUPS PO PRN (11:25)
[2021-10-31] MEDS: IBUPROFEN 600 MG TABLET (FP) PO PRN (11:26)
[2021-10-31 15:14] VITALS: BP 112/63; PULSE 65; TEMP 98.3
== END 2021-10-31 16:17 | disposition home or self-care (01) | DRG 776 ==
LOC: JER 11:47 → JERBED 16:46 → J5S 21:52 → OBSVTOIN 10-29 09:17
PROVIDERS: ADMIT Internal Medicine; ATTEND Internal Medicine
DX: O99.53 Diseases of the respiratory system complicating the puerperium (principal); J13 Pneumonia due to Streptococcus pneumoniae; E87.2 Acidosis; O85 Puerperal sepsis; O90.81 Anemia of the puerperium; D64.9 Anemia, unspecified
CPT/HCPCS: 36415; 71045-TC-FY; 71275-TC; 80048; 80053; 81003; 82553; 82803; 83605; 83735; 83880; 84100; 84484; 85025; 85610; 85730; 86850; 86900; 86901; 87040; 87070; 87086; 87186; 87205; 87804; 87899; 93005; 93010; 93971-TC; 99285-25; C9803-CS; G0378; Q9967; U0003; U0005

== ENCOUNTER 2024-08-30 11:20 | Day surgery (SDC) | payer BC, OTHER ==
[2024-08-28 16:35] VITALS: BMI 26.9
[2024-08-30] MEDS ORDERED: LACTATED RINGERS SOLUTION 1,000 ML IV SCH (13:45)
[2024-08-30 16:21] VITALS: RESP 20; TEMP 97.8
[2024-08-30 16:23] VITALS: BP 115/72; PULSE 71
== END 2024-08-30 16:05 | disposition home or self-care (01) ==
LOC: JASU-SURG 11:20
PROVIDERS: ATTEND Obstetrics & Gynecology
PROC: 0UB98ZZ Excision of Uterus, Via Natural or Artificial Opening Endoscopic (ICD-10-PCS; principal; 2024-08-30 13:00)
DX: D25.0 Submucous leiomyoma of uterus (principal); N84.0 Polyp of corpus uteri
CPT/HCPCS: 81025; 88305-TC; 94760